=== PATIENT | female | born 1960 | race Caucasian/White ===

== ENCOUNTER → 2016-09-17 | Outpatient (CLI) | payer OTHER ==
[2016-09-17 09:32] LABS: BASOPHILS # (AUTO) 0.05 10*3/UL; BASOPHILS % (AUTO) 0.9 % (0-1); EOSINOPHILS % (AUTO) 4.4 % (0-8); HEMATOCRIT 44.2 % (37.0-47.0); HEMOGLOBIN 14.7 g/dL (12.0-16.0); IMM GRAN % (AUTO) 0.4 % (0-5); IMM GRAN# (AUTO) 0.02 10*3/UL; LYMPHOCYTES # (AUTO) 1.36 10*3/uL; LYMPHOCYTES % (AUTO) 25.2 % (10-50); MEAN CORPUSCULAR HEMOGLOBIN 30.3 PG (27-31); MEAN CORPUSCULAR HGB CONC 33.3 g/dL (33-37); MEAN PLATELET VOLUME 10.8 FL (7.4-12.2); MONOCYTES # (AUTO) 0.53 10*3/UL (0.3-0.8); MONOCYTES % (AUTO) 9.8 % (5-15); NEUTROPHILS % (AUTO) 59.3 % (50-80); RDW COEFFICIENT OF VARIATION 14.2 % (11.5-14.5); RED BLOOD COUNT 4.85 10^6/uL (4.20-5.40)
[2016-09-17 09:36] LABS: PLATELET MORPHOLOGY COMMENT NORMAL MORPHOLOGY (NORM)
[2016-09-19 07:46] LABS: FREE T4 (FREE THYROXINE) 1.9 ng/dL (0.93-1.71)
[2016-09-22 17:29] LABS: BUN/CREATININE RATIO 15.38 (6-20); CALCIUM 9.5 mg/dL (8.7-10.7); CREATININE 2.6 mg/dL (0.50-1.20); PHOSPHORUS 3.9 mg/dl (2.4-4.3); POTASSIUM 4.8 meq/L (3.8-5.2)
== END ==
LOC: LAB 08:59
PROVIDERS: ATTEND Family Medicine
DX: E03.9 Hypothyroidism, unspecified (principal); F31.89 Other bipolar disorder; N28.9 Disorder of kidney and ureter, unspecified; Z79.899 Other long term (current) drug therapy
CPT/HCPCS: 36415; 80069; 84439; 84443; 84481; 85025

== ENCOUNTER → 2016-09-23 | Outpatient (CLI) | payer OTHER ==
--- NOTE | 2016-09-23 13:59 | DI ---
History: Dyspnea. Two-view study. Prior exam: None. Findings: Overall, the lungs are clear. The heart is not enlarged. Bony structures are intact. Impression: Unremarkable two-view chest x-ray
== END ==
LOC: RAD 12:56
PROVIDERS: ATTEND Internal Medicine Nephrology
DX: R06.00 Dyspnea, unspecified (principal)
CPT/HCPCS: 71020

== ENCOUNTER → 2016-09-28 | Outpatient (CLI) | payer OTHER ==
[2016-09-28 12:32] LABS: HEMATOCRIT 44.8 % (37.0-47.0); HEMOGLOBIN 14.7 g/dL (12.0-16.0); MEAN CORPUSCULAR HEMOGLOBIN 29.9 PG (27-31); MEAN CORPUSCULAR HGB CONC 32.8 g/dL (33-37); MEAN PLATELET VOLUME 11.2 FL (7.4-12.2); RDW COEFFICIENT OF VARIATION 13.8 % (11.5-14.5); RED BLOOD COUNT 4.91 10^6/uL (4.20-5.40); WHITE BLOOD COUNT 5.64 10^3/uL (4.8-10.8)
[2016-09-28 12:46] LABS: BUN/CREATININE RATIO 10.68 (6-20); CALCIUM 9.7 mg/dL (8.7-10.7); CREATININE 2.9 mg/dL (0.50-1.20); POTASSIUM 4.2 meq/L (3.8-5.2)
[2016-09-29 11:10] LABS: PARATHYROID HORMONE 266 pg/mL (15-65)
== END ==
LOC: LAB 11:44
PROVIDERS: ATTEND Internal Medicine Nephrology
DX: I12.9 Hypertensive chronic kidney disease with stage 1 through stage 4 chronic kidney disease, or unspecified chronic kidney disease (principal); N18.3 Chronic kidney disease, stage 3 (moderate); N25.81 Secondary hyperparathyroidism of renal origin; D63.1 Anemia in chronic kidney disease; R60.9 Edema, unspecified
CPT/HCPCS: 36415; 80069; 83970; 85027

== ENCOUNTER → 2016-10-06 | Outpatient (CLI) | payer OTHER | LOC: US 07:56 | PROVIDERS: ATTEND Internal Medicine Nephrology | DX: R06.00 Dyspnea, unspecified (principal); I10 Essential (primary) hypertension; R53.83 Other fatigue; R42 Dizziness and giddiness; I51.7 Cardiomegaly; I34.0 Nonrheumatic mitral (valve) insufficiency; Z72.0 Tobacco use | CPT/HCPCS: 93306 ==

== ENCOUNTER → 2016-11-16 | Outpatient (CLI) | payer OTHER ==
[2016-11-16 11:20] LABS: FREE T4 (FREE THYROXINE) 2.09 ng/dL (0.93-1.71)
== END ==
LOC: LAB 10:25
PROVIDERS: ATTEND Family Medicine
DX: E03.9 Hypothyroidism, unspecified (principal)
CPT/HCPCS: 36415; 84439; 84443

== ENCOUNTER → 2016-11-17 | Outpatient (CLI) | payer OTHER | LOC: MMPC 11:11 | PROVIDERS: ATTEND Physician Assistant | DX: M26.622 Arthralgia of left temporomandibular joint (principal) | CPT/HCPCS: 99213; G0463 ==

== ENCOUNTER → 2016-11-29 | Outpatient (CLI) | payer OTHER | LOC: MMPC 09:00 | PROVIDERS: ATTEND Nurse Practitioner Family | DX: M26.622 Arthralgia of left temporomandibular joint (principal) | CPT/HCPCS: 99213; G0463 ==

== ENCOUNTER → 2016-12-09 | Outpatient (CLI) | payer OTHER ==
[2016-12-09 10:23] LABS: BUN/CREATININE RATIO 13.93 (6-20); CALCIUM 9.4 mg/dL (8.7-10.7); PHOSPHORUS 5.2 mg/dl (2.4-4.3); SERUM ALBUMIN 3.9 g/dL (3.5-4.8)
== END ==
LOC: LAB 09:47
PROVIDERS: ATTEND Internal Medicine Nephrology
DX: N18.3 Chronic kidney disease, stage 3 (moderate) (principal)
CPT/HCPCS: 36415; 80069

== ENCOUNTER → 2017-03-16 | Outpatient (CLI) | payer OTHER ==
[2017-03-16 11:19] LABS: BUN/CREATININE RATIO 13.03 (6-20); CALCIUM 9.3 mg/dL (8.7-10.7); PHOSPHORUS 4.5 mg/dl (2.4-4.3)
== END ==
LOC: LAB 10:33
PROVIDERS: ATTEND Internal Medicine Nephrology
DX: I12.9 Hypertensive chronic kidney disease with stage 1 through stage 4 chronic kidney disease, or unspecified chronic kidney disease (principal); N18.4 Chronic kidney disease, stage 4 (severe); D63.1 Anemia in chronic kidney disease; N25.81 Secondary hyperparathyroidism of renal origin
CPT/HCPCS: 36415; 80069; 83970

== ENCOUNTER → 2017-05-04 | Outpatient (CLI) | payer OTHER ==
--- NOTE | 2017-05-04 11:46 | DI ---
LUMBAR SPINE SERIES, 05/04/2017 10:12 AM: Clinical History: Low back pain. Previous Exam: 04/04/2014. For routine upright views are submitted. The vertebral bodies are of normal height and size. The disc spaces are normal. The pedicles are normal. Arthritic changes are present bilaterally in the L5-S1 a pophyseal joints. Both SI joints are normal. Reading: Except for degenerative arthritic change in the L5-S1 apophyseal joints bilaterally, the study is nor mal.
--- NOTE | 2017-05-04 11:46 | DI ---
AP PELVIS and LEFT HIP, 05/04/2017 10:14 AM: Clinical History: Left hip tightness. Previous Exam: None at this facility. There is no soft tissue abnormality. The bony structures of the pelvis are normal. 2 views of the lef t hip are normal. Reading: Normal left hip exam. The AP pelvis view is unremarkable.
[2017-05-04 15:01] LABS: FREE T4 (FREE THYROXINE) 1.7 ng/dL (0.93-1.71)
== END ==
LOC: MOB LAB 10:18
PROVIDERS: ATTEND Nurse Practitioner Family
DX: E03.9 Hypothyroidism, unspecified (principal); M54.5 Low back pain; M47.816 Spondylosis without myelopathy or radiculopathy, lumbar region; M25.552 Pain in left hip; R29.898 Other symptoms and signs involving the musculoskeletal system
CPT/HCPCS: 36415; 72110; 73502; 84439; 84443